=== PATIENT | female | born 1965 | race American Indian/Alaskan Native ===

== ENCOUNTER → 2018-03-22 | Outpatient (CLI) | payer OTHER | LOC: MC.RAD 10:00 | DX: Z12.31 Encounter for screening mammogram for malignant neoplasm of breast (principal); N64.52 Nipple discharge; N63.20 Unspecified lump in the left breast, unspecified quadrant ==

== ENCOUNTER → 2019-09-13 | Outpatient (CLI) | payer OTHER | LOC: MC.RAD 14:02 | DX: Z12.31 Encounter for screening mammogram for malignant neoplasm of breast (principal) ==

== ENCOUNTER → 2021-06-20 | Outpatient (CLI) | payer OTHER | LOC: MC.RAD 13:16 | DX: Z12.31 Encounter for screening mammogram for malignant neoplasm of breast (principal) ==

== ENCOUNTER → 2022-08-12 | Outpatient (CLI) | payer OTHER | LOC: MC.RAD 13:37 | DX: Z12.31 Encounter for screening mammogram for malignant neoplasm of breast (principal) ==

== ENCOUNTER → 2023-10-30 | Outpatient (CLI) | payer OTHER | LOC: MC.RAD 08:34 | DX: Z12.31 Encounter for screening mammogram for malignant neoplasm of breast (principal); R92.0 Mammographic microcalcification found on diagnostic imaging of breast ==

== ENCOUNTER → 2023-11-19 | Outpatient (CLI) | payer OTHER | LOC: MC.RAD 09:53 | DX: R92.0 Mammographic microcalcification found on diagnostic imaging of breast (principal) ==

== ENCOUNTER → 2023-12-09 | Outpatient (CLI) | payer OTHER | LOC: MC.RAD 08:17 | DX: R92.0 Mammographic microcalcification found on diagnostic imaging of breast (principal) ==